=== PATIENT | female | born 1975 | race Caucasian/White ===

== ENCOUNTER 2018-12-09 08:10 | Outpatient (CLI) | payer MEDICAID ==
[~2018-12-09 08:10] MED LIST: BUPR-94 PO; ESTRADIOL PATCH TOP; OMEP20CA11 PO; TRAM50TA2 PO
== END 2018-12-09 23:59 | disposition home or self-care (01) ==
LOC: RAD 08:10
PROVIDERS: ATTEND Nurse Practitioner Family
DX: R09.1 Pleurisy (principal); F17.200 Nicotine dependence, unspecified, uncomplicated
CPT/HCPCS: 71046

== ENCOUNTER 2022-01-18 06:51 | Emergency (ER) | payer MEDICAID ==
[~2022-01-18] VITALS: Ht 157.5 cm; Wt 53.6 kg
[~2022-01-18 06:51] MED LIST changes: -OMEP20CA11 PO; +OMEP20CA15 PO
[2022-01-18 06:55] VITALS: BP 102/70
[2022-01-18 10:00] LABS: CLARITY,URINE CLOUDY (Clear); COLOR,URINE YELLOW (Yellow); GLUCOSE, URINE NEGATIVE (Neg); KETONES,URINE >=80 mg/dl (Neg); LEUKOCYTE ESTERASE ,URINE MODERATE (Neg); NITRITES, URINE POSITIVE (Neg); OCCULT BLOOD,URINE LARGE (Neg); PROTEIN,URINE 100 mg/dl (Neg); URINE HCG NEGATIVE (NEG)
[2022-01-18 10:06] LABS: UA COLLECTION TYPE CLN CATCH MIDSTREAM
[2022-01-18 10:07] LABS: RBC,URINE 20-50 /HPF (0-2); WBC,URINE TNTC /HPF (0-4)
[2022-01-18 10:08] LABS: BACTERIA,URINE 1+ /HPF (Neg); SQUAMOUS EPITHELIAL CELL,UR FEW /LPF (FEW); WBC CLUMPS,URINE MANY /HPF (NEGATIVE)
[2022-01-18] MEDS ORDERED: PHEN-786 PO (10:34)
[2022-01-18] MEDS ORDERED: SULF1TAB49 PO (10:34)
[2022-01-18] MEDS ORDERED: sulfamethoxazole/trimethoprim DS (800/160mg) tablet PO ONE (10:35)
[2022-01-18] MEDS ORDERED: phenazopyridine 100mg tablet PO ONE (10:35)
== END 2022-01-18 10:52 | disposition home or self-care (01) ==
LOC: ER 06:52
DX: N39.0 Urinary tract infection, site not specified (principal); Z88.5 Allergy status to narcotic agent; Z88.8 Allergy status to other drugs, medicaments and biological substances
CPT/HCPCS: 81001; 81025; 87077; 87088; 87186; 99283